=== PATIENT | female | born 1955 | race Caucasian/White ===

== ENCOUNTER 2020-04-15 10:42 | Emergency (ER) | payer OTHER ==
[~2020-04-15] VITALS: Ht 162.5 cm; Wt 76.7 kg
[2020-04-15] MEDS ORDERED: NORCO 5-325 TA1 EACH PO (11:48)
== END 2020-04-15 14:20 | disposition home or self-care (01) ==
LOC: ED 10:42
DX: S42.91XA Fracture of right shoulder girdle, part unspecified, initial encounter for closed fracture (principal); E11.9 Type 2 diabetes mellitus without complications; I10 Essential (primary) hypertension; E78.00 Pure hypercholesterolemia, unspecified; X58.XXXA Exposure to other specified factors, initial encounter; Y93.89 Activity, other specified; Y92.89 Other specified places as the place of occurrence of the external cause; Y99.8 Other external cause status